=== PATIENT | female | born 1995 ===

== ENCOUNTER 2020-08-16 06:43 | Inpatient (IN) | payer MEDICAID, OTHER ==
[~2020-08-16] VITALS: Ht 157.5 cm; Wt 81.8 kg
[2020-08-16] MEDS ORDERED: TERBUTALINE 1 MG/ML, 1ML SQ PRN (07:00)
[2020-08-16] MEDS ORDERED: TERBUTALINE 1 MG/ML, 1ML IVPush PRN (07:00)
[2020-08-16] MEDS ORDERED: OXYTOCIN 30U/ 0.9% NaCL 500ML 500 ML IV ONE (07:00)
[2020-08-16 07:09] VITALS: BP 118/64
[2020-08-16] MEDS: LACTATED RINGERS 1,000 ML IV SCH ×2 (07:25→16:30)
[2020-08-16] MEDS ORDERED: OXYTOCIN 30U/ 0.9% NaCL 500ML 500 ML ONE (07:26)
[2020-08-16] MEDS ORDERED: HYDROcodone/APAP 5/325 TABLET PO PRN ×2 (07:30)
[2020-08-16] MEDS ORDERED: SIMETHICONE 80 MG CHEW TAB PO PRN (07:30)
[2020-08-16] MEDS ORDERED: ONDANSETRON 2MG/ML, 2ML IV PRN (07:30)
[2020-08-16] MEDS ORDERED: OXYTOCIN 10 UNITS/ML, 1ML IM ONE (07:30)
[2020-08-16] MEDS ORDERED: DOCUSATE 100 MG CAPSULE PO PRN (07:30)
[2020-08-16] MEDS ORDERED: OXYTOCIN 10 UNITS/ML, 1ML IM PRN (07:30)
[2020-08-16] MEDS ORDERED: MISOPROSTOL 200 MCG TABLET PO PRN (07:30)
[2020-08-16] MEDS ORDERED: METHYLERGONOVINE 0.2 MG/ML IM PRN (07:30)
[2020-08-16] MEDS: OXYTOCIN 30U/ 0.9% NaCL 500ML 500 ML IV SCH ×2 (07:30→17:30)
[2020-08-16] MEDS: IBUPROFEN 600 MG TABLET PO PRN ×2 (07:40→18:52)
[2020-08-16 08:07] LABS: BASOPHILS % (AUTO) 0 % (0-1); EOSINOPHILS % (AUTO) 0 % (1-7); LYMPHOCYTES % (AUTO) 17 % (22-44); MEAN CORPUSCULAR HGB CONC 34.1 g/dL (32.4-35.8); MEAN PLATELET VOLUME 8.2 fL (7.4-10.4); MONOCYTES % (AUTO) 6 % (2-9); NEUTROPHILS % (AUTO) 76 % (42-75); PLATELET COUNT 197 x10^3/uL (130-400); RED BLOOD COUNT 3.88 x10^6/uL (3.82-5.3); RED CELL DISTRIBUTION WIDTH 14.9 % (9.6-15.2)
[2020-08-16 08:56] LABS: AMPHETAMINE SCREEN, URINE Negative (Negative); BARBITURATE SCREEN, URINE Negative (Negative); BENZODIAZEPINE SCREEN, URINE Negative (Negative); CANNABINOID SCREEN, URINE Positive (Negative); COCAINE SCREEN, URINE Negative (Negative); METHADONE SCREEN, URINE Negative (Negative); OPIATE SCREEN, URINE Negative (Negative)
[2020-08-16] MEDS: PRENATAL VIT/IRON/FA 1 EACH TABLET PO SCH (09:00)
[2020-08-16 11:15] VITALS: BP 99/56
[2020-08-16 15:30] VITALS: BP 111/75
[2020-08-16 21:30] VITALS: BP 106/72
[2020-08-17] MEDS: LACTATED RINGERS 1,000 ML IV SCH (00:30)
[2020-08-17 00:45] VITALS: BP 99/65
[2020-08-17] MEDS: OXYTOCIN 30U/ 0.9% NaCL 500ML 500 ML IV SCH (03:30)
[2020-08-17 04:24] LABS: BASOPHILS % (AUTO) 0 % (0-1); EOSINOPHILS % (AUTO) 1 % (1-7); LYMPHOCYTES % (AUTO) 22 % (22-44); MEAN CORPUSCULAR HEMOGLOBIN 32.3 pg (27.0-34.8); MEAN CORPUSCULAR HGB CONC 34.1 g/dL (32.4-35.8); MEAN PLATELET VOLUME 8.1 fL (7.4-10.4); MONOCYTES % (AUTO) 7 % (2-9); NEUTROPHILS % (AUTO) 70 % (42-75); PLATELET COUNT 185 x10^3/uL (130-400); RED BLOOD COUNT 3.07 x10^6/uL (3.82-5.3); RED CELL DISTRIBUTION WIDTH 14.7 % (9.6-15.2)
[2020-08-17 04:25] VITALS: BP 108/69
[2020-08-17] MEDS: PRENATAL VIT/IRON/FA 1 EACH TABLET PO SCH (08:14)
[2020-08-17] MEDS: IBUPROFEN 600 MG TABLET PO PRN ×2 (08:14→20:01)
[2020-08-17 08:22] VITALS: BP 111/74
[2020-08-17 20:00] VITALS: BP 115/78
[2020-08-18 08:15] VITALS: BP 122/76
[2020-08-18] MEDS: PRENATAL VIT/IRON/FA 1 EACH TABLET PO SCH (09:00)
== END 2020-08-18 13:20 | disposition home or self-care (01) | DRG 560 ==
LOC: LDOP 06:43 → EDBD 06:59 → LDIP 06:59 → NSY 16:28 → 2NW 16:33
PROVIDERS: ADMIT Obstetrics & Gynecology; ATTEND Obstetrics & Gynecology
PROC: 10E0XZZ Delivery of Products of Conception, External Approach (ICD-10-PCS; principal; 2020-08-16)
DX: O62.3 Precipitate labor (principal); Z20.822 Contact with and (suspected) exposure to COVID-19; Z37.0 Single live birth; Z3A.39 39 weeks gestation of pregnancy
CPT/HCPCS: 36415; 80307; 85025; 86592; 86762; 86803; 86850; 86900; 87340; 87635; 87806; G0378; G0475; J2590; J7120